=== PATIENT | female | born 1995 | race Caucasian/White ===

== ENCOUNTER 2019-04-26 17:24 | Inpatient (IN) | payer BC ==
[2019-04-26] MEDS ORDERED: LIDOCAINE 1% (MPF) 30 ML INJ INJ (18:30)
[2019-04-26] MEDS ORDERED: MISOPROSTOL 200 MCG TAB PR ×2 (18:30→23:30)
[2019-04-26] MEDS ORDERED: CARBOPROST 250 MCG INJ IM ×2 (18:30→23:30)
[2019-04-26] MEDS ORDERED: OXYTOCIN 30 UNITS/LR 500 ML IV (18:30)
[2019-04-26] MEDS ORDERED: METHYLERGONOVINE 0.2 MG INJ IM ×2 (18:30→23:30)
[2019-04-26] MEDS ORDERED: BUTORPHANOL 2 MG INJ IV ×2 (18:30)
[2019-04-26] MEDS: LACTATED RINGER'S 1,000 ML IV ×2 (18:38→21:13)
[2019-04-26 19:10] LABS: ADD MAN DIFF? NO
[2019-04-26 19:15] LABS: WHITE BLOOD COUNT 7.7 10^3/ul (4.8-10.8)
[2019-04-26 19:15] LABS: BASOPHILS % 0.3 % (0.0-2.0); EOSINOPHILS % 0.5 % (0.0-7.0); HEMATOCRIT 32.1 % (37.0-47.0); LYMPHOCYTES # 2.1 10^3/ul (0.8-2.9); LYMPHOCYTES % 26.9 % (15.0-51.0); MEAN CORPUSCULAR HEMOGLOBIN 30.6 pg (29.0-33.0); MEAN CORPUSCULAR HGB CONC 34.3 g/dl (32.0-37.0); MEAN CORPUSCULAR VOLUME 89.4 fl (82.0-101.0); MEAN PLATELET VOLUME 10.7 fl (7.4-10.4); MONOCYTE # 0.4 10^3/ul (0.3-0.9); MONOCYTES % 5.3 % (0.0-11.0); NEUTROPHIL # 5.1 10^3/ul (1.6-7.5); NEUTROPHILS % 66.6 % (39.0-77.0); PLATELET COUNT 255 10^3/UL (140-415); RED BLOOD COUNT 3.59 10^6/ul (4.20-5.40); RED CELL DISTRIBUTION WIDTH 13.7 % (11.5-14.5)
[2019-04-26] MEDS ORDERED: AMPICILLIN 2 GM/NS (PMX) 100 ML IVPB (19:30)
[2019-04-26 19:33] LABS: INR 0.92; PROTIME 12.5 Sec (11.9-14.9)
[2019-04-26] MEDS ORDERED: FENTAnyl 2MCG/ML-ROPIV 0.2% 100 ML (19:41)
[2019-04-26 20:08] LABS: HEPATITIS B SURFACE ANTIGEN NEGATIVE (NEGATIVE)
[2019-04-26] MEDS: AMPICILLIN 2 GM/NS (PMX) 100 ML IV (20:21)
[2019-04-26] MEDS ORDERED: FENTAnyl 2MCG/ML-ROPIV 0.2% 100 ML BAG EPI (20:30)
[2019-04-26] MEDS ORDERED: NALOXONE (0.4 MG/ML) INJ IV (20:30)
[2019-04-26] MEDS ORDERED: ONDANSETRON 4 MG INJ IV (20:30)
[2019-04-26] MEDS ORDERED: EPHEDrine 25 MG/5 ML SYG IV (20:30)
[2019-04-26] MEDS ORDERED: DIPHENHYDRAMINE 50 MG INJ IV (20:30)
[2019-04-26] MEDS ORDERED: AMPICILLIN 1 GM/NS (PMX) 50 ML IVPB (21:00)
[2019-04-26] MEDS ORDERED: AMPICILLIN 1 GM/NS (PMX) 50 ML IV (22:30)
[2019-04-26] MEDS: OXYTOCIN 30 UNITS/LR 500 ML IV ×2 (22:39→22:40)
[2019-04-26] MEDS ORDERED: OXYCODONE/ASPIRIN (4.88/325) TAB PO ×2 (23:30)
[2019-04-26] MEDS ORDERED: ZOLPIDEM 5 MG TAB PO (23:30)
[2019-04-27] MEDS: BENZOCAINE 20% 56 ML SPRAY TOP (00:11)
[2019-04-27] MEDS: IBUPROFEN 600 MG TAB PO ×4 (00:11→17:23)
[2019-04-27] MEDS: WITCH HAZEL/GLYCERIN PAD PR (00:11)
[2019-04-27] MEDS: LANOLIN HPA 1 PKT TOP (00:12)
[2019-04-27] MEDS: OXYTOCIN 30 UNITS/LR 500 ML IV (02:29)
[2019-04-27 08:15] LABS: ADD MAN DIFF? NO
[2019-04-27 08:16] LABS: BASOPHILS % 0.2 % (0.0-2.0); EOSINOPHILS % 0.2 % (0.0-7.0); HEMATOCRIT 29.2 % (37.0-47.0); HEMOGLOBIN 10.1 g/dl (12.0-16.0); LYMPHOCYTES % 18.4 % (15.0-51.0); MEAN CORPUSCULAR HEMOGLOBIN 30.6 pg (29.0-33.0); MEAN CORPUSCULAR HGB CONC 34.6 g/dl (32.0-37.0); MEAN CORPUSCULAR VOLUME 88.5 fl (82.0-101.0); MEAN PLATELET VOLUME 10.3 fl (7.4-10.4); MONOCYTE # 0.6 10^3/ul (0.3-0.9); MONOCYTES % 5.7 % (0.0-11.0); PLATELET COUNT 197 10^3/UL (140-415); RED CELL DISTRIBUTION WIDTH 13.4 % (11.5-14.5)
[2019-04-27 08:16] LABS: WHITE BLOOD COUNT 10.7 10^3/ul (4.8-10.8)
[2019-04-27] MEDS: SENNA/DOCUSATE NA (8.6MG/50MG) TAB PO ×2 (08:33→21:00)
[2019-04-27 15:46] LABS: RAPID PLASMA REAGIN NONREACTIVE (NR)
[2019-04-28] MEDS: SENNA/DOCUSATE NA (8.6MG/50MG) TAB PO ×3 (00:11→21:39)
[2019-04-28] MEDS: IBUPROFEN 600 MG TAB PO ×4 (00:11→17:26)
[2019-04-28] MEDS: DIPHTH/TET/ACEL PERTUSS (ADULT) 0.5 ML VIAL IM* (09:20)
== END 2019-04-28 22:05 | disposition home or self-care (01) | DRG 807 ==
LOC: OBT 17:24 → L-D 17:24 → OBT 18:10 → L-D 18:10 → PP1 23:21
PROVIDERS: Obstetrics & Gynecology
PROC: 10E0XZZ Delivery of Products of Conception, External Approach (ICD-10-PCS; principal; 2019-04-27)
PROC: 0HQ9XZZ Repair Perineum Skin, External Approach (ICD-10-PCS; 2019-04-27)
DX: O70.0 First degree perineal laceration during delivery (principal); Z37.0 Single live birth; O99.214 Obesity complicating childbirth; Z3A.39 39 weeks gestation of pregnancy
CPT/HCPCS: 62322; 85025; 85610; 85730; 86592; 86850; 86900; 86901; 87340